=== PATIENT | male | born 1995 | race Caucasian/White ===

== ENCOUNTER 2017-06-29 22:35 | Emergency (ER) | payer OTHER ==
[~2017-06-29] VITALS: Ht 177.8 cm; Wt 72.6 kg
[~2017-06-29 22:35] MED LIST: ACETAMINOPHEN500 M4 PO
[2017-06-29 22:45] VITALS: BP 126/74
== END 2017-06-30 00:56 | disposition admitted as inpatient to this hospital (09) ==
LOC: ERH 22:35
DX: R10.32 Left lower quadrant pain (principal); R11.0 Nausea